=== PATIENT | female | born 1950 | race Caucasian/White ===

== ENCOUNTER → 2018-01-16 | Outpatient (CLI) | payer MEDICARE ==
[~2018-01-16] MED LIST: CLARITIN 1010 MG/TAB PO; DILTIAZEM30 MG PO; GLYBURIDE5 MG PO; LISINOPRIL10 MG PO; WARFARIN SOD5 MG PO; WARFARIN SODIU7.5 MG PO; ZOCOR10 MG PO
== END ==
LOC: MC.RAD 14:20
DX: Z12.31 Encounter for screening mammogram for malignant neoplasm of breast (principal)

== ENCOUNTER → 2018-03-09 | Outpatient (REF) ==
[~2018-03-09] MED LIST changes: +ASPIRIN 81M81 MG/TA2 PO; +INVOKAMET1 PO; +INVOKAMET4; +LIPITOR 10MG10 MG PO; +MAXIPIME2 GM IV; +NORCO 325 MG-51 TAB PO; +NS INT FLUSH 1010 ML IV; +THE MEDICINE SH1 T18 PO; +TOPROL XL 25MG25 MG; +TOPROL XL 25MG25 MG PO; +VANCOMYCIN 11 G/VIA1 IV; +XARELTO10 MG PO
[2018-03-09 09:02] LABS: VANCOMYCIN TROUGH 14.47 ug/mL (7.00-20.00)
== END ==
LOC: ZLAB.WCH 08:36
PROVIDERS: Family Medicine
DX: Z01.89 Encounter for other specified special examinations (principal)

== ENCOUNTER → 2018-03-16 | Outpatient (REF) ==
[~2018-03-16] MED LIST changes: +COREG 3.123.125 MG/T PO; +JANUMXR1000-50 PO; -LIPITOR 10MG10 MG PO; +LIPITOR 80MG80 MG PO; +VICTOZA6 MG/ML SQ; -XARELTO10 MG PO; +XARELTO20 MG PO; +ZESTRIL 5MG5 MG PO
[2018-03-16 08:47] LABS: C-REACTIVE PROTEIN 0.9 mg/dL (0.0-0.9)
[2018-03-16 09:02] LABS: VANCOMYCIN TROUGH 36.27 ug/mL (7.00-20.00)
== END ==
LOC: ZLAB.WCH 08:28
PROVIDERS: Internal Medicine Infectious Disease
DX: Z01.89 Encounter for other specified special examinations (principal)

== ENCOUNTER → 2018-03-17 | Outpatient (REF) | LOC: ZLAB.WCH 08:43 | DX: Z01.89 Encounter for other specified special examinations (principal) ==

== ENCOUNTER → 2018-03-17 | Outpatient (REF) | LOC: ZLAB.WCH 15:54 | DX: Z01.89 Encounter for other specified special examinations (principal) ==

== ENCOUNTER → 2018-03-29 | Outpatient (REF) ==
[~2018-03-29] MED LIST changes: +CUBICIN 500MG500 MG IV; +ELIQUIS 2.5 PO; +FLAGYL500 MG PO
== END ==
LOC: ZLAB.WCH 08:45
DX: Z01.89 Encounter for other specified special examinations (principal)

== ENCOUNTER 2018-04-09 00:44 | Inpatient (IN) | payer MEDICARE, BC ==
[~2018-04-09] VITALS: Ht 162.6 cm; Wt 80.8 kg
[2018-04-09] VITALS (946 sets, daily range): BP systolic 103–147; BP diastolic 60–88; PULSE 73–89; TEMP 97.3–98.3; O2SAT 66–100
[2018-04-09 01:05] LABS: BASO % 0.5 % (0.0-2.0); EOS # 0.1 (0.0-0.7); EOS % 1.5 % (0-4.0); GRAN % 80.5 % (42.2-75.2); HEMATOCRIT 30.7 % (37.0-47.0); HEMOGLOBIN 10.5 g/dl (12.5-16.0); LYMPH # 0.8 (1.2-3.4); LYMPH % 10.9 % (20.0-51.0); MEAN CELL VOLUME 81 fl (80.0-100.0); MEAN CORPUSCULAR HEMOGLOBIN 28 pg (27.0-31.0); MEAN CORPUSCULAR HGB CONC 34 g/dl (33.0-37.0); MEAN PLATELET VOLUME 9.9 fl (7.4-10.4); MONO # 0.5 (0.1-0.6); MONO % 6.3 % (1.7-9.3); PLATELET COUNT 267 K/mm3 (130-400); RED BLOOD COUNT 3.79 M/mm3 (4.10-5.30); REDCELL DISTRIBUTION WIDTH-CV 14.6 % (11.5-14.5)
[2018-04-09 01:13] LABS: ALANINE AMINOTRANSFERASE 29 U/L (9-52); ALBUMIN 4.4 gm/dL (3.5-5.0); ALKALINE PHOSPHATASE 100 U/L (50-136); ANION GAP 18 mmol/L (7-16); AST,SGOT 34 U/L (15-37); BILIRUBIN,TOTAL 1.1 mg/dL (0.0-1.0); BLOOD UREA NITROGEN 14 mg/dL (7-17); CALCIUM 8.5 mg/dL (8.4-10.2); CARBON DIOXIDE 28 mmol/L (22-30); CHLORIDE 95 mmol/L (98-107); CREATININE, serum 0.83 mg/dL (0.52-1.25); GLUCOSE 177 mg/dL (74-106); SODIUM 141 mmol/L (137-145); TOTAL PROTEIN 8.1 gm/dL (6.4-8.2)
[2018-04-09 01:15] LABS: INR 1.3 (0.8-3.0); PROTHROMBIN TIME 15.1 SECONDS (9.7-12.8)
[2018-04-09 01:24] LABS: TROPONIN-I < 0.012 ng/mL (0.000-0.034)
[2018-04-09] MEDS ORDERED: ANXIETY MEDICATION (02:03)
[2018-04-09 06:06] LABS: BASO % 0.3 % (0.0-2.0); EOS # 0.1 (0.0-0.7); EOS % 0.6 % (0-4.0); GRAN # 6.3 (1.4-6.5); GRAN % 80.7 % (42.2-75.2); HEMOGLOBIN 10.6 g/dl (12.5-16.0); LYMPH # 0.9 (1.2-3.4); LYMPH % 12.1 % (20.0-51.0); MEAN CELL VOLUME 80 fl (80.0-100.0); MEAN CORPUSCULAR HEMOGLOBIN 27 pg (27.0-31.0); MEAN CORPUSCULAR HGB CONC 34 g/dl (33.0-37.0); MEAN PLATELET VOLUME 9.9 fl (7.4-10.4); MONO # 0.5 (0.1-0.6); MONO % 5.9 % (1.7-9.3); PLATELET COUNT 266 K/mm3 (130-400); RED BLOOD COUNT 3.88 M/mm3 (4.10-5.30); REDCELL DISTRIBUTION WIDTH-CV 14.7 % (11.5-14.5)
[2018-04-09 06:18] LABS: HEMATOCRIT 31.2 % (37.0-47.0)
[2018-04-09 06:19] LABS: MUCOUS Present /lpf; PH 8 (5-8); SQUAMOUS EPITHELIAL None Seen /hpf; URINE APPEARANCE Clear; URINE BACTERIA None Seen /hpf; URINE BILIRUBIN Negative (NEGATIVE); URINE BLOOD Negative (NEGATIVE); URINE COLOR Straw; URINE GLUCOSE Negative (NEGATIVE); URINE KETONE Negative (NEGATIVE); URINE LEUKOCYTE ESTERASE Negative (NEGATIVE); URINE NITRATE Negative (NEGATIVE); URINE PROTEIN(semi-quant) 1+ (NEGATIVE); URINE RBC 0-2 /hpf; URINE UROBILINOGEN Negative (NEGATIVE)
[2018-04-09 06:24] LABS: ALBUMIN 4.3 gm/dL (3.5-5.0); CALCIUM 8.5 mg/dL (8.4-10.2); CREATININE, serum 0.84 mg/dL (0.52-1.25); TOTAL PROTEIN 8.2 gm/dL (6.4-8.2)
[2018-04-09 06:47] LABS: COLLECTION METHOD RANDOM VOIDED
[2018-04-10] VITALS (1279 sets, daily range): BP systolic 92–122; BP diastolic 53–68; PULSE 71–91; TEMP 97.3–98.4; O2SAT 90–100
[2018-04-10 05:52] LABS: BASO # 0.1 (0.0-0.2); BASO % 0.8 % (0.0-2.0); EOS # 0.3 (0.0-0.7); EOS % 4.2 % (0-4.0); GRAN # 4.3 (1.4-6.5); GRAN % 68.8 % (42.2-75.2); LYMPH # 1.1 (1.2-3.4); LYMPH % 18.3 % (20.0-51.0); MEAN CELL VOLUME 82 fl (80.0-100.0); MEAN CORPUSCULAR HGB CONC 34 g/dl (33.0-37.0); MEAN PLATELET VOLUME 9.7 fl (7.4-10.4); MONO # 0.5 (0.1-0.6); MONO % 7.6 % (1.7-9.3); PLATELET COUNT 225 K/mm3 (130-400); RED BLOOD COUNT 3.44 M/mm3 (4.10-5.30); REDCELL DISTRIBUTION WIDTH-CV 15.2 % (11.5-14.5)
[2018-04-10 05:56] LABS: HEMATOCRIT 28.2 % (37.0-47.0); HEMOGLOBIN 9.5 g/dl (12.5-16.0); MEAN CORPUSCULAR HEMOGLOBIN 28 pg (27.0-31.0)
[2018-04-10 06:02] LABS: CALCIUM 8.4 mg/dL (8.4-10.2); CREATININE, serum 0.98 mg/dL (0.52-1.25); MAGNESIUM 2.4 mg/dL (1.6-2.3)
[2018-04-11] VITALS (234 sets, daily range): BP systolic 96–163; BP diastolic 27–77; PULSE 69–97; TEMP 97.7–98.1; O2SAT 91–100
[2018-04-11 05:40] LABS: BASO % 0.9 % (0.0-2.0); EOS # 0.2 (0.0-0.7); EOS % 3.7 % (0-4.0); GRAN # 2.8 (1.4-6.5); GRAN % 60.8 % (42.2-75.2); LYMPH # 1.2 (1.2-3.4); LYMPH % 26.2 % (20.0-51.0); MEAN CELL VOLUME 83 fl (80.0-100.0); MEAN CORPUSCULAR HGB CONC 34 g/dl (33.0-37.0); MEAN PLATELET VOLUME 9.9 fl (7.4-10.4); MONO # 0.4 (0.1-0.6); MONO % 8.2 % (1.7-9.3); PLATELET COUNT 213 K/mm3 (130-400); RED BLOOD COUNT 3.42 M/mm3 (4.10-5.30); REDCELL DISTRIBUTION WIDTH-CV 15.2 % (11.5-14.5)
[2018-04-11 05:42] LABS: HEMATOCRIT 28.2 % (37.0-47.0); HEMOGLOBIN 9.5 g/dl (12.5-16.0); MEAN CORPUSCULAR HEMOGLOBIN 28 pg (27.0-31.0)
[2018-04-11 05:48] LABS: CALCIUM 8.6 mg/dL (8.4-10.2); CREATININE, serum 1.03 mg/dL (0.52-1.25); POTASSIUM 3.8 mmol/L (3.4-5.0)
[2018-04-12 04:11] VITALS: BP 121/48; PULSE 71; TEMP 97.8
[2018-04-12 06:51] LABS: CALCIUM 8.6 mg/dL (8.4-10.2); CREATININE, serum 1.05 mg/dL (0.52-1.25); MAGNESIUM 1.6 mg/dL (1.6-2.3); POTASSIUM 3.5 mmol/L (3.4-5.0)
[2018-04-12 06:54] VITALS: BP 119/49; PULSE 70; TEMP 98.3
[2018-04-12 11:08] VITALS: BP 123/52; PULSE 70; TEMP 97.9
[2018-04-12] MEDS ORDERED: PACERONE400 MG PO (14:19)
[2018-04-12] MEDS ORDERED: ELIQUIS 5MG PO (14:19)
[2018-04-12] MEDS ORDERED: CUBICIN 500MG500 MG IV ×2 (14:19→14:33)
== END 2018-04-12 17:10 | disposition home or self-care (01) | DRG 309 ==
LOC: COL.ER 00:44 → ICU 02:26 → MEDICAL 04-11 14:49
PROVIDERS: Emergency Medicine; Internal Medicine; Nurse Practitioner Family
PROC: 5A2204Z Restoration of Cardiac Rhythm, Single (ICD-10-PCS; principal; 2018-04-11)
DX: I48.91 Unspecified atrial fibrillation (principal); N17.9 Acute kidney failure, unspecified; E87.6 Hypokalemia; I34.0 Nonrheumatic mitral (valve) insufficiency; D64.9 Anemia, unspecified; I25.10 Atherosclerotic heart disease of native coronary artery without angina pectoris; I10 Essential (primary) hypertension; E78.5 Hyperlipidemia, unspecified; E11.9 Type 2 diabetes mellitus without complications; Z79.01 Long term (current) use of anticoagulants; Z95.5 Presence of coronary angioplasty implant and graft; Z95.0 Presence of cardiac pacemaker
CPT/HCPCS: 99223-AI; 99232-AI; 99233-AI; 99239; A9502; G9654; J0282; J0878; J1170; J1650; J1815; J1940; J2250; J2405; J2704; J3010; J3475; J3480; J7060; Q9967

== ENCOUNTER 2018-04-14 08:10 | Observation (INO) | payer MEDICARE, BC ==
[~2018-04-14] VITALS: Ht 162.6 cm; Wt 79.5 kg
[~2018-04-14 08:10] MED LIST changes: +ANXIETY MEDICATION; +ELIQUIS 5MG PO; +PACERONE400 MG PO
[2018-04-14 08:48] LABS: BASO % 0.4 % (0.0-2.0); EOS # 0.1 (0.0-0.7); EOS % 0.9 % (0-4.0); GRAN % 81.7 % (42.2-75.2); HEMOGLOBIN 10.9 g/dl (12.5-16.0); LYMPH # 0.8 (1.2-3.4); LYMPH % 11.2 % (20.0-51.0); MEAN CELL VOLUME 82 fl (80.0-100.0); MEAN CORPUSCULAR HEMOGLOBIN 28 pg (27.0-31.0); MEAN CORPUSCULAR HGB CONC 34 g/dl (33.0-37.0); MEAN PLATELET VOLUME 9.9 fl (7.4-10.4); MONO # 0.4 (0.1-0.6); MONO % 5.4 % (1.7-9.3); PLATELET COUNT 276 K/mm3 (130-400); RED BLOOD COUNT 3.93 M/mm3 (4.10-5.30); REDCELL DISTRIBUTION WIDTH-CV 14.9 % (11.5-14.5)
[2018-04-14 08:49] LABS: HEMATOCRIT 32.2 % (37.0-47.0)
[2018-04-14 09:03] LABS: ALANINE AMINOTRANSFERASE 37 U/L (9-52); ALBUMIN 4.6 gm/dL (3.5-5.0); ALKALINE PHOSPHATASE 81 U/L (50-136); ANION GAP 14 mmol/L (7-16); AST,SGOT 46 U/L (15-37); BLOOD UREA NITROGEN 14 mg/dL (7-17); C-REACTIVE PROTEIN 0.5 mg/dL (0.0-0.9); CALCIUM 9.8 mg/dL (8.4-10.2); CARBON DIOXIDE 27 mmol/L (22-30); CHLORIDE 96 mmol/L (98-107); CREATININE, serum 0.96 mg/dL (0.52-1.25); GLUCOSE 138 mg/dL (74-106); LIPASE 182 U/L (23-300); SODIUM 137 mmol/L (137-145); TOTAL PROTEIN 8.6 gm/dL (6.4-8.2)
[2018-04-14 09:13] LABS: TROPONIN-I < 0.012 ng/mL (0.000-0.034)
[2018-04-14 10:56] LABS: COLLECTION METHOD CLEAN CATCH
[2018-04-14 11:07] VITALS: BP 127/84; PULSE 80
[2018-04-14 11:36] LABS: PH 7 (5-8); SQUAMOUS EPITHELIAL 0-2 /hpf; URINE APPEARANCE Clear; URINE BACTERIA None Seen /hpf; URINE BILIRUBIN Negative (NEGATIVE); URINE BLOOD Negative (NEGATIVE); URINE COLOR Yellow; URINE GLUCOSE Negative (NEGATIVE); URINE KETONE Negative (NEGATIVE); URINE LEUKOCYTE ESTERASE Negative (NEGATIVE); URINE NITRATE Negative (NEGATIVE); URINE PROTEIN(semi-quant) 1+ (NEGATIVE); URINE RBC 0-2 /hpf; URINE UROBILINOGEN Negative (NEGATIVE)
[2018-04-14 15:52] VITALS: BP 132/61; PULSE 82; TEMP 98
[2018-04-14 15:54] VITALS: BP 132/61; PULSE 82; TEMP 98
[2018-04-14 19:34] VITALS: BP 117/57; PULSE 78; TEMP 98.1
[2018-04-15 00:19] VITALS: BP 150/63; PULSE 72; TEMP 97.9
[2018-04-15 03:47] VITALS: BP 116/47; PULSE 73; TEMP 97.4
[2018-04-15 07:08] LABS: BASO % 0.6 % (0.0-2.0); EOS # 0.2 (0.0-0.7); EOS % 3.4 % (0-4.0); LYMPH % 22.2 % (20.0-51.0); MEAN CELL VOLUME 85 fl (80.0-100.0); MEAN CORPUSCULAR HGB CONC 34 g/dl (33.0-37.0); MEAN PLATELET VOLUME 10.3 fl (7.4-10.4); MONO # 0.4 (0.1-0.6); MONO % 9.4 % (1.7-9.3); PLATELET COUNT 196 K/mm3 (130-400); RED BLOOD COUNT 3.16 M/mm3 (4.10-5.30); REDCELL DISTRIBUTION WIDTH-CV 15.2 % (11.5-14.5)
[2018-04-15 07:18] VITALS: BP 129/74; PULSE 63; TEMP 98.2
[2018-04-15 07:19] LABS: CALCIUM 8.5 mg/dL (8.4-10.2); CREATININE, serum 0.89 mg/dL (0.52-1.25); MAGNESIUM 1.3 mg/dL (1.6-2.3); POTASSIUM 3.8 mmol/L (3.4-5.0)
[2018-04-15 07:24] LABS: HEMATOCRIT 26.9 % (37.0-47.0); MEAN CORPUSCULAR HEMOGLOBIN 28 pg (27.0-31.0)
[2018-04-15] MEDS ORDERED: COLACE 100100 MG/CAP PO (09:28)
[2018-04-15] MEDS ORDERED: ZOFRAN 4MG T4 MG/TAB PO (09:28)
[2018-04-15] MEDS ORDERED: MIRALAX238G PO (09:28)
== END 2018-04-15 12:13 | disposition home or self-care (01) ==
LOC: COL.ER 08:10 → SURG 12:52 → MEDICAL 12:58
PROVIDERS: Emergency Medicine; Nurse Practitioner Family
DX: R11.2 Nausea with vomiting, unspecified (principal); I95.1 Orthostatic hypotension; K59.00 Constipation, unspecified; I48.0 Paroxysmal atrial fibrillation; E78.5 Hyperlipidemia, unspecified; E11.9 Type 2 diabetes mellitus without complications; N17.9 Acute kidney failure, unspecified; I10 Essential (primary) hypertension; Z79.01 Long term (current) use of anticoagulants
CPT/HCPCS: G0378; J0878; J1170; J2405; J7030; Q9967

== ENCOUNTER → 2018-04-22 | Outpatient (REF) ==
[~2018-04-22] MED LIST changes: +COLACE 100100 MG/CAP PO; +MIRALAX238G PO; +ZOFRAN 4MG T4 MG/TAB PO
== END ==
LOC: ZLAB.WCH 11:30
DX: Z01.89 Encounter for other specified special examinations (principal)

== ENCOUNTER 2018-05-23 11:51 | Inpatient (IN) | payer MEDICARE, BC ==
[~2018-05-23] VITALS: Ht 162.6 cm; Wt 83.8 kg
[2018-06-01 08:49] VITALS: BP 142/59; PULSE 77; TEMP 98.4
[2018-06-01 09:36] LABS: HEMOGLOBIN 10.1 g/dl (12.5-16.0); MEAN CELL VOLUME 85 fl (80.0-100.0); MEAN CORPUSCULAR HEMOGLOBIN 28 pg (27.0-31.0); MEAN CORPUSCULAR HGB CONC 33 g/dl (33.0-37.0); PLATELET COUNT 188 K/mm3 (130-400); RED BLOOD COUNT 3.56 M/mm3 (4.10-5.30); REDCELL DISTRIBUTION WIDTH-CV 14.7 % (11.5-14.5)
[2018-06-01 09:39] LABS: HEMATOCRIT 30.2 % (37.0-47.0)
[2018-06-01 09:44] LABS: INR 1.4 (0.8-3.0); PROTHROMBIN TIME 16.3 SECONDS (9.7-12.8)
[2018-06-01 09:58] LABS: ALBUMIN 3.9 gm/dL (3.5-5.0); BILIRUBIN,TOTAL 0.8 mg/dL (0.0-1.0); CREATININE, serum 0.7 mg/dL (0.52-1.25); MAGNESIUM 1.4 mg/dL (1.6-2.3); TOTAL PROTEIN 7.4 gm/dL (6.4-8.2)
[2018-06-01] MEDS ORDERED: COREG 25MG25 MG/TAB PO (10:46)
[2018-06-01] MEDS ORDERED: COLACE 100100 MG/CAP PO (10:47)
[2018-06-01] MEDS ORDERED: PROBIOTIC ACID1 EAC3 PO (10:49)
[2018-06-01] MEDS ORDERED: LASIX 20MG TABL20 MG PO (10:51)
[2018-06-01 11:23] VITALS: BP 143/66; PULSE 82; TEMP 97.2
[2018-06-01 16:24] VITALS: BP 138/58; PULSE 72
[2018-06-01 16:26] VITALS: BP 124/50
[2018-06-01 16:27] VITALS: BP 126/50
[2018-06-01 20:54] VITALS: BP 128/88; PULSE 71; TEMP 98.5
[2018-06-02 00:27] VITALS: BP 132/62; PULSE 58; TEMP 98
[2018-06-02 03:05] VITALS: BP 128/57; PULSE 70; TEMP 98.8
[2018-06-02 07:09] LABS: BASO % 0.5 % (0.0-2.0); EOS # 0.1 (0.0-0.7); GRAN # 4.8 (1.4-6.5); GRAN % 75.1 % (42.2-75.2); HEMOGLOBIN 10.2 g/dl (12.5-16.0); MEAN CELL VOLUME 87 fl (80.0-100.0); MEAN CORPUSCULAR HEMOGLOBIN 28 pg (27.0-31.0); MEAN CORPUSCULAR HGB CONC 32 g/dl (33.0-37.0); MEAN PLATELET VOLUME 10.2 fl (7.4-10.4); MONO # 0.4 (0.1-0.6); MONO % 5.9 % (1.7-9.3); PLATELET COUNT 222 K/mm3 (130-400)
[2018-06-02 07:15] LABS: HEMATOCRIT 32.2 % (37.0-47.0)
[2018-06-02 07:22] LABS: CREATININE, serum 0.68 mg/dL (0.52-1.25); MAGNESIUM 1.8 mg/dL (1.6-2.3); POTASSIUM 3.8 mmol/L (3.4-5.0)
[2018-06-02 08:07] VITALS: BP 144/64; PULSE 69; TEMP 98.1
[2018-06-02 11:04] VITALS: BP 143/63; PULSE 73; TEMP 97.5
[2018-06-02 17:05] VITALS: BP 121/53; PULSE 74; TEMP 97.6
[2018-06-02 21:25] VITALS: BP 114/72; BP 139/60; PULSE 65; TEMP 97.7; TEMP 98.1
[2018-06-03 00:04] VITALS: BP 133/58; PULSE 71; TEMP 98.1
[2018-06-03 04:30] VITALS: BP 132/56; PULSE 70; TEMP 97.8
[2018-06-03 07:51] VITALS: BP 149/69; PULSE 72; TEMP 98.2
[2018-06-03] MEDS ORDERED: BETAPACE 80MG80 MG PO (10:25)
== END 2018-06-03 11:30 | disposition home or self-care (01) | DRG 310 ==
LOC: MEDICAL 06-01 08:35
PROVIDERS: Internal Medicine Cardiovascular Disease; Nurse Practitioner Family
DX: I48.0 Paroxysmal atrial fibrillation (principal); I25.10 Atherosclerotic heart disease of native coronary artery without angina pectoris; I10 Essential (primary) hypertension; E11.42 Type 2 diabetes mellitus with diabetic polyneuropathy; Z95.5 Presence of coronary angioplasty implant and graft; Z95.0 Presence of cardiac pacemaker; Z79.01 Long term (current) use of anticoagulants; E78.5 Hyperlipidemia, unspecified; E83.42 Hypomagnesemia; E11.65 Type 2 diabetes mellitus with hyperglycemia; I05.2 Rheumatic mitral stenosis with insufficiency
CPT/HCPCS: 99222; 99232-AI; 99238; G8978-GP; G8979-GP; J1815; J3475

== ENCOUNTER 2018-07-10 10:22 | Day surgery (SDC) | payer MEDICARE, BC ==
[~2018-07-10] VITALS: Ht 162.7 cm; Wt 79.0 kg
[~2018-07-10 10:22] MED LIST changes: +BETAPACE 80MG80 MG PO; +COREG 25MG25 MG/TAB PO; +LASIX 20MG TABL20 MG PO; +PROBIOTIC ACID1 EAC3 PO
[2018-07-10] MEDS ORDERED: AMBIEN 5MG TABLE5 MG PO (10:31)
[2018-07-10 11:02] VITALS: BP 144/87; PULSE 88; TEMP 97.8
[2018-07-10 11:35] LABS: INR 1.5 (0.8-3.0)
[2018-07-10] MEDS ORDERED: BETAPACE160 MG PO (12:12)
[2018-07-10 12:25] VITALS: BP 148/72; PULSE 74
[2018-07-10 12:40] VITALS: BP 140/74; PULSE 71; TEMP 97.4
[2018-07-10 12:56] VITALS: BP 132/76; PULSE 70; TEMP 98
[2018-07-10 13:17] VITALS: BP 149/80; PULSE 70; TEMP 97.9
== END 2018-07-10 15:44 | disposition home or self-care (01) ==
LOC: COL.CAR 10:22
PROVIDERS: Internal Medicine Cardiovascular Disease
DX: I48.0 Paroxysmal atrial fibrillation (principal); E11.9 Type 2 diabetes mellitus without complications; I25.10 Atherosclerotic heart disease of native coronary artery without angina pectoris; I49.5 Sick sinus syndrome; I10 Essential (primary) hypertension; Z78.0 Asymptomatic menopausal state; Z79.899 Other long term (current) drug therapy; Z82.49 Family history of ischemic heart disease and other diseases of the circulatory system; Z95.0 Presence of cardiac pacemaker; E78.5 Hyperlipidemia, unspecified; Z79.01 Long term (current) use of anticoagulants
CPT/HCPCS: J2250; J3010; J7030

== ENCOUNTER → 2018-08-08 | Outpatient (CLI) | payer MEDICARE, BC ==
[~2018-08-08] MED LIST changes: +AMBIEN 5MG TABLE5 MG PO; +BETAPACE160 MG PO
== END ==
LOC: COL.RAD 07:39
DX: K91.0 Vomiting following gastrointestinal surgery (principal); R19.7 Diarrhea, unspecified; R10.9 Unspecified abdominal pain
CPT/HCPCS: A9541

== ENCOUNTER 2019-03-07 15:06 | Emergency (ER) | payer MEDICARE, BC ==
[~2019-03-07] VITALS: Ht 5.1 cm; Wt 90.9 kg
[2019-03-07 15:32] VITALS: BP 127/80; TEMP 97.4
[2019-03-07 16:26] LABS: ALANINE AMINOTRANSFERASE 16 U/L (9-52); ALBUMIN 4.1 gm/dL (3.5-5.0); ALKALINE PHOSPHATASE 109 U/L (50-136); ANION GAP 12 mmol/L (7-16); AST,SGOT 41 U/L (15-37); BLOOD UREA NITROGEN 22 mg/dL (7-17); C-REACTIVE PROTEIN < 0.5 mg/dL (0.0-0.9); CALCIUM 9.2 mg/dL (8.4-10.2); CARBON DIOXIDE 25 mmol/L (22-30); CHLORIDE 99 mmol/L (98-107); CREATININE, serum 0.82 (0.52-1.25); GLUCOSE 262 mg/dL (74-106); LIPASE 126 U/L (23-300); POTASSIUM 4.5 mmol/L (3.4-5.0); SODIUM 136 mmol/L (137-145); TOTAL PROTEIN 7.7 gm/dL (6.4-8.2)
[2019-03-07 16:34] LABS: BASO % 0.6 % (0.0-2.0); EOS # 0.1 (0.0-0.7); EOS % 0.8 % (0-4.0); GRAN # 5.3 (1.4-6.5); GRAN % 72.9 % (42.2-75.2); HEMATOCRIT 39.7 % (37.0-47.0); HEMOGLOBIN 13.6 g/dl (12.5-16.0); LYMPH # 1.3 (1.2-3.4); LYMPH % 18.2 % (20.0-51.0); MEAN CELL VOLUME 84 fl (80.0-100.0); MEAN CORPUSCULAR HEMOGLOBIN 29 pg (27.0-31.0); MEAN CORPUSCULAR HGB CONC 34 g/dl (33.0-37.0); MEAN PLATELET VOLUME 10.3 fl (7.4-10.4); MONO # 0.5 (0.1-0.6); MONO % 7.1 % (1.7-9.3); PLATELET COUNT 223 K/mm3 (130-400); RED BLOOD COUNT 4.75 M/mm3 (4.10-5.30); REDCELL DISTRIBUTION WIDTH-CV 14.5 % (11.5-14.5)
[2019-03-07 16:36] LABS: TROPONIN-I < 0.012 ng/mL (0.000-0.035)
[2019-03-07] MEDS ORDERED: LASIX 20MG TABL20 MG PO (16:58)
[2019-03-07] MEDS ORDERED: LEXAPRO 5MG5 MG PO (16:58)
[2019-03-07] MEDS ORDERED: LEVEMIR100 U/ML SQ (16:59)
[2019-03-07] MEDS ORDERED: LOPRESSOR 550 MG/TAB PO (17:00)
[2019-03-07] MEDS ORDERED: FLEXERIL5 MG PO (17:57)
[2019-03-07] MEDS ORDERED: ANTIVERT 25MG25 MG PO (17:57)
[2019-03-07 18:38] VITALS: PULSE 71
== END 2019-03-07 18:38 | disposition home or self-care (01) ==
LOC: COL.ER 15:06
PROVIDERS: Emergency Medicine
DX: M54.2 Cervicalgia (principal); R42 Dizziness and giddiness; I10 Essential (primary) hypertension; E78.00 Pure hypercholesterolemia, unspecified; I25.10 Atherosclerotic heart disease of native coronary artery without angina pectoris; I48.91 Unspecified atrial fibrillation; Z95.0 Presence of cardiac pacemaker; Z79.01 Long term (current) use of anticoagulants; Z79.82 Long term (current) use of aspirin; Z79.4 Long term (current) use of insulin
CPT/HCPCS: J2060; J7030; Q9967

== ENCOUNTER 2019-05-08 23:30 | Emergency (ER) | payer MEDICARE, BC ==
[~2019-05-08] VITALS: Ht 160 cm; Wt 90.9 kg
[~2019-05-08 23:30] MED LIST changes: +ANTIVERT 25MG25 MG PO; +FLEXERIL5 MG PO; +LEVEMIR100 U/ML SQ; +LEXAPRO 5MG5 MG PO; +LOPRESSOR 550 MG/TAB PO
[2019-05-09 00:21] LABS: HEMATOCRIT 37.1 % (37.0-47.0); HEMOGLOBIN 12.5 g/dl (12.5-16.0); MEAN CELL VOLUME 85 fl (80.0-100.0); MEAN CORPUSCULAR HEMOGLOBIN 29 pg (27.0-31.0); MEAN CORPUSCULAR HGB CONC 34 g/dl (33.0-37.0); MEAN PLATELET VOLUME 10.3 fl (7.4-10.4); PLATELET COUNT 175 K/mm3 (130-400); RED BLOOD COUNT 4.36 M/mm3 (4.10-5.30); REDCELL DISTRIBUTION WIDTH-CV 14.1 % (11.5-14.5)
[2019-05-09 00:29] LABS: ALANINE AMINOTRANSFERASE 18 U/L (9-52); ALBUMIN 4.1 gm/dL (3.5-5.0); ALKALINE PHOSPHATASE 135 U/L (50-136); ANION GAP 16 mmol/L (7-16); AST,SGOT 36 U/L (15-37); BILIRUBIN,TOTAL 1.2 mg/dL (0.0-1.0); BLOOD UREA NITROGEN 15 mg/dL (7-17); CALCIUM 8.9 mg/dL (8.4-10.2); CARBON DIOXIDE 27 mmol/L (22-30); CHLORIDE 96 mmol/L (98-107); CREATININE, serum 0.57 (0.52-1.25); GLUCOSE 370 mg/dL (74-106); POTASSIUM 4.2 mmol/L (3.4-5.0); SODIUM 139 mmol/L (137-145); TOTAL PROTEIN 7.4 gm/dL (6.4-8.2)
[2019-05-09 00:31] LABS: INR 1.1 (0.8-3.0); PROTHROMBIN TIME 12.7 SECONDS (9.7-12.8)
[2019-05-09 00:41] LABS: TROPONIN-I < 0.012 ng/mL (0.000-0.035)
[2019-05-09 00:55] LABS: BAND 6 % (0-10); LYMPHOCYTE 5 % (20.0-51.0); METAMYELOCYTE 1 % (0-0); NEUTROPHILS 86 % (42.0-75.2); PLATELET ESTIMATE NORMAL (NORMAL)
[2019-05-09 06:25] VITALS: BP 127/46; PULSE 69; TEMP 98.2
== END 2019-05-09 06:20 | disposition home or self-care (01) ==
LOC: COL.ER 23:30
PROVIDERS: Emergency Medicine
DX: R11.10 Vomiting, unspecified (principal); I25.10 Atherosclerotic heart disease of native coronary artery without angina pectoris; I48.91 Unspecified atrial fibrillation; E11.9 Type 2 diabetes mellitus without complications; I10 Essential (primary) hypertension; E78.5 Hyperlipidemia, unspecified; Z95.5 Presence of coronary angioplasty implant and graft; Z95.0 Presence of cardiac pacemaker; Z96.652 Presence of left artificial knee joint; Z98.890 Other specified postprocedural states; Z79.01 Long term (current) use of anticoagulants; Z79.82 Long term (current) use of aspirin; Z79.4 Long term (current) use of insulin
CPT/HCPCS: J1815; J3010; J7030

== ENCOUNTER 2020-02-17 21:48 | Inpatient (IN) | payer MEDICARE, BC ==
[~2020-02-17] VITALS: Ht 157.5 cm; Wt 93.6 kg
[2020-02-17 22:51] LABS: BASO % 0.2 % (0.0-2.0); EOS # 0.2 (0.0-0.7); EOS % 1.9 % (0-4.0); GRAN # 6.9 (1.4-6.5); GRAN % 76.8 % (42.2-75.2); HEMOGLOBIN 11.7 g/dl (12.5-16.0); LYMPH # 1.2 (1.2-3.4); LYMPH % 13.9 % (20.0-51.0); MEAN CELL VOLUME 81 fl (80.0-100.0); MEAN CORPUSCULAR HEMOGLOBIN 27 pg (27.0-31.0); MEAN CORPUSCULAR HGB CONC 33 g/dl (33.0-37.0); MEAN PLATELET VOLUME 10.2 fl (7.4-10.4); MONO # 0.6 (0.1-0.6); MONO % 6.6 % (1.7-9.3); PLATELET COUNT 173 K/mm3 (130-400); RED BLOOD COUNT 4.31 M/mm3 (4.10-5.30); REDCELL DISTRIBUTION WIDTH-CV 14.1 % (11.5-14.5)
[2020-02-17 23:05] LABS: ALANINE AMINOTRANSFERASE 15 U/L (4-34); ALBUMIN 3.9 gm/dL (3.5-5.0); ALKALINE PHOSPHATASE 201 U/L (50-136); ANION GAP 11 mmol/L (7-16); AST,SGOT 26 U/L (15-37); BILIRUBIN,TOTAL 0.8 mg/dL (0.0-1.0); BLOOD UREA NITROGEN 16 mg/dL (7-17); CARBON DIOXIDE 26 mmol/L (22-30); CHLORIDE 93 mmol/L (98-107); CREATININE, serum 0.77 (0.52-1.25); LIPASE 100 U/L (23-300); SODIUM 130 mmol/L (137-145); TOTAL PROTEIN 7.6 gm/dL (6.4-8.2)
[2020-02-17 23:06] LABS: HEMATOCRIT 35.1 % (37.0-47.0)
[2020-02-17 23:17] LABS: GLUCOSE 531 mg/dL (74-106)
[2020-02-17 23:43] LABS: ACETONE,SERUM NEGATIVE
[2020-02-18] MEDS ORDERED: LEXAPRO 10MG10 MG PO (01:07)
[2020-02-18] MEDS ORDERED: PRIL40 PO (01:08)
[2020-02-18] MEDS ORDERED: MIRALAX PA17 GM/Dose PO (01:08)
[2020-02-18 01:51] LABS: CALCIUM 8.5 mg/dL (8.4-10.2); CREATININE, serum 0.66 (0.52-1.25)
--- NOTE | 2020-02-18 02:45 | NUR ---
Patient arrived to medical floor at this time. Assessment complete. Lungs clear. Heart sounds normal. Bowels active x4. Pulses present throughout. Left lower extremity +2 edema present with weak pulse. Left foot wound swollen with erythema to foot and ankle present. Reports decreased feeling in both feet. Blood sugar 209-Brenda updated. Also pulse 50s hold metoprolol. Gave verbal order for melatonin. patient orientated to medical floor and room. All questions answered. INT left AC unable to flush- restarted in left upper arm. Also started second IV in left forearm. Denies needs at this time. Call light in reach. Will monitor.
[2020-02-18 02:47] VITALS: BP 125/51; PULSE 50; TEMP 97.7
--- NOTE | 2020-02-18 06:22 | NUR ---
Patient had uneventful night. Receiving potassium replacement as order. Otherwise resting in bed this AM. Denies needs. Call light in reach.
[2020-02-18 07:12] LABS: BASO % 0.3 % (0.0-2.0); EOS # 0.2 (0.0-0.7); EOS % 2.7 % (0-4.0); GRAN # 4.2 (1.4-6.5); GRAN % 67.1 % (42.2-75.2); HEMOGLOBIN 10.1 g/dl (12.5-16.0); LYMPH # 1.3 (1.2-3.4); MEAN CELL VOLUME 83 fl (80.0-100.0); MEAN CORPUSCULAR HEMOGLOBIN 28 pg (27.0-31.0); MEAN CORPUSCULAR HGB CONC 34 g/dl (33.0-37.0); MEAN PLATELET VOLUME 10.5 fl (7.4-10.4); MONO # 0.5 (0.1-0.6); MONO % 8.4 % (1.7-9.3); PLATELET COUNT 162 K/mm3 (130-400); RED BLOOD COUNT 3.63 M/mm3 (4.10-5.30); REDCELL DISTRIBUTION WIDTH-CV 14.3 % (11.5-14.5)
--- NOTE | 2020-02-18 07:21 | NUR ---
Report given to BRAD Alvarez
[2020-02-18 07:31] LABS: CALCIUM 8.3 mg/dL (8.4-10.2); CREATININE, serum 0.59 (0.52-1.25); POTASSIUM 3.6 mmol/L (3.4-5.0)
[2020-02-18 07:33] LABS: HEMATOCRIT 30.1 % (37.0-47.0)
[2020-02-18 07:38] VITALS: BP 130/42; BP 130/44; PULSE 70; TEMP 97.8
--- NOTE | 2020-02-18 08:23 | NUR ---
Assessment complete. Pt resting in bed on entry. States she was able to get comfortable. States she had minor abdominal pain/pressure and a headache, will request PRN pain mediaction. IV sites CD&I, IV fluids and potassium running at this time. No pain other than her headache. She is alert and oriented. She is aware of her POC. Will continue to monitor. Call light is in reach.
[2020-02-18 11:52] VITALS: BP 151/64; PULSE 69; TEMP 97.8
--- NOTE | 2020-02-18 12:37 | NUR ---
Pt reports a headache rated at an 8 out 10, PRN pain medication provided for this. States her abdomen and chest feel "tight" but denies shortness of breath. States this happens on and off at home. encouraged her to call if she feels short of breath or if chest pain occurs. Will continue to monitor.
--- NOTE | 2020-02-18 14:27 | NUR ---
Pts headache continued to persists after 650 of PO tylenol. Notified JONY Perales who further notified . One time dose of imetrex and benedryl was give. Will continue to monitor for an improvement in pts pain.
--- NOTE | 2020-02-18 16:03 | NUR ---
JAZ met with the patient to complete initial intake. The patient lives in [place] with her . The patient denies DME use and is independent with ADLs. The patient's PCP is Dr. Montano and patient receives medication from [facility] with no difficulties. The patient does not have advanced directives in the EMR and was not interested in DPOA-HC form at this time. The patient plans to return home at discharge with her providing transportation. There are no additional needs at this time.
[2020-02-18 16:24] VITALS: BP 134/73; PULSE 70; TEMP 97.9
--- NOTE | 2020-02-18 18:36 | NUR ---
Pt has been resting since recieving her medication for her headache. States that she feels like it is coming back but went back to sleep. Will let night RN know her headache was a significant issue today so it can be monitored closely over night.
[2020-02-18 19:38] VITALS: BP 154/57; PULSE 71; TEMP 98
--- NOTE | 2020-02-18 20:43 | NUR ---
Resting in bed. Assessment complete. Lungs clear. Heart sounds normal. Bowels active x4. Pulses present throughout. Left lower extremity edema +2. Left foot ulcer present with erythema. Close with no drainage. PICC to right upper arm without complications. Patient reports 2/10 headache. Provided with PRN tylenol at this time. Denies other needs. Call light in reach. Will monitor.
[2020-02-18 23:29] VITALS: BP 116/38; PULSE 51; TEMP 98.1
--- NOTE | 2020-02-19 00:07 | NUR ---
Resting in bed. Denies needs. Call light in reach.
--- NOTE | 2020-02-19 02:46 | NUR ---
Resting in bed. Denies needs. Call light in reach.
[2020-02-19 03:54] VITALS: BP 117/45; PULSE 57; TEMP 98.2
--- NOTE | 2020-02-19 05:48 | NUR ---
Patient had uneventful night. Required x1 dose of tylenol for headache. Denies needs this AM. Call light in reach.
--- NOTE | 2020-02-19 07:00 | NUR ---
Reports headache returned 1 hour ago rating 5/10. Provided with PRN tylenol.
--- NOTE | 2020-02-19 07:01 | NUR ---
Report given to BRAD Alvarez
[2020-02-19 07:46] VITALS: BP 158/64; PULSE 69; TEMP 98.3
--- NOTE | 2020-02-19 09:10 | NUR ---
Assessment complete. Patient resting in bed at this time, awake. States her headache from this morning has improved since recieving her PRN tylenol. Denies pain at this time. States that she still feels like she cannot take in a full breath. On ascultation her lung are clear but breaths are not deep. Denies feeling SOB, no chest pain. Foot remain edematous and tender to medium palpitation. Redness aroumd the ankle has improved since yesterday. Pt is aware of her POC, MRI at 1115. No other needs at [facility] time. Call light is in reach.
--- NOTE | 2020-02-19 11:07 | NUR ---
Pt down to MRI at this time.
--- NOTE | 2020-02-19 11:24 | NUR ---
First visit from the loftsman. No needs right now.
[2020-02-19 12:20] VITALS: BP 171/58; PULSE 70; TEMP 97.9
--- NOTE | 2020-02-19 12:54 | NUR ---
Pt has not had a headache since early this morning. States that she is comfortable in bed at this time, eating lunch. Insulin administered per orders. No other needs at this time. Call light is in reach.
--- NOTE | 2020-02-19 14:12 | NUR ---
Patient reported pain from headache rated at a 6 out of 10. PRN tylenol provided for this pain. No other needs were expressed at this. Will continue to monitor pain.
[2020-02-19 16:02] VITALS: BP 137/44; PULSE 70; TEMP 98.2
[2020-02-19 20:15] VITALS: BP 162/52; PULSE 71; TEMP 98.4
--- NOTE | 2020-02-19 21:00 | NUR ---
Initial shift assessment done- states having a severe H/A, 06/21- states feels warm, no fever, Brenda HAQUE called- pt states the combination of meds from yesterday did well for her BUCIO-- Brenda did order the benadryl and imitrex x1-- will give as ordered. Pt up to bathroom- steady on feet
[2020-02-20 01:01] VITALS: BP 139/56; PULSE 55; TEMP 98.7
[2020-02-20 05:09] VITALS: BP 134/49; PULSE 51; TEMP 99.1
--- NOTE | 2020-02-20 06:06 | NUR ---
Quiet night- the Imitrex and Benadryl given last night was very effective- denies headache and states slept so good--VSS
[2020-02-20 06:57] LABS: BASO % 0.3 % (0.0-2.0); EOS # 0.2 (0.0-0.7); EOS % 2.7 % (0-4.0); GRAN # 4.7 (1.4-6.5); LYMPH # 0.9 (1.2-3.4); LYMPH % 14.5 % (20.0-51.0); MEAN CELL VOLUME 83 fl (80.0-100.0); MEAN CORPUSCULAR HGB CONC 33 g/dl (33.0-37.0); MEAN PLATELET VOLUME 10.5 fl (7.4-10.4); MONO # 0.5 (0.1-0.6); MONO % 7.2 % (1.7-9.3); PLATELET COUNT 177 K/mm3 (130-400); RED BLOOD COUNT 3.62 M/mm3 (4.10-5.30); REDCELL DISTRIBUTION WIDTH-CV 14.6 % (11.5-14.5)
[2020-02-20 07:02] LABS: HEMOGLOBIN 9.9 g/dl (12.5-16.0); MEAN CORPUSCULAR HEMOGLOBIN 27 pg (27.0-31.0)
[2020-02-20 07:26] LABS: ALBUMIN 3.3 gm/dL (3.5-5.0); BILIRUBIN,TOTAL 1.1 mg/dL (0.0-1.0); C-REACTIVE PROTEIN 6.4 mg/dL (0.0-0.9); CALCIUM 8.6 mg/dL (8.4-10.2); CREATININE, serum 0.63 (0.52-1.25); POTASSIUM 4.1 mmol/L (3.4-5.0); TOTAL PROTEIN 6.7 gm/dL (6.4-8.2)
[2020-02-20 08:09] VITALS: BP 139/63; PULSE 70; TEMP 98.5
[2020-02-20] MEDS ORDERED: GLUCOTROL 5M5 MG/TAB PO (11:43)
[2020-02-20] MEDS ORDERED: DOXYCYCLINE 10100 MG PO (11:46)
--- NOTE | 2020-02-20 14:49 | NUR ---
Pt assessment completed and charted. Pt is alert and oriented, on room air. Meds provided as per MAR, breakfast and lunch provided, tolerated well. PICC flushed. Pt is independent. No N/V/D, pain, numbness, tingling, SOB as per pt. Discharge education given and PICC line taken out by the charge nurse. Patient is waiting for her family member to come and pick her up.
== END 2020-02-20 15:45 | disposition home or self-care (01) | DRG 638 ==
LOC: COL.ER 21:48 → MEDICAL 02-18 00:20
PROVIDERS: Emergency Medicine; Nurse Practitioner Family; Physician Assistant; ADMIT Emergency Medicine
DX: E11.628 Type 2 diabetes mellitus with other skin complications (principal); L03.116 Cellulitis of left lower limb; E87.2 Acidosis; E11.65 Type 2 diabetes mellitus with hyperglycemia; E11.40 Type 2 diabetes mellitus with diabetic neuropathy, unspecified; E78.5 Hyperlipidemia, unspecified; G43.909 Migraine, unspecified, not intractable, without status migrainosus; I25.10 Atherosclerotic heart disease of native coronary artery without angina pectoris; I48.0 Paroxysmal atrial fibrillation; I49.5 Sick sinus syndrome; Z95.0 Presence of cardiac pacemaker; Z79.4 Long term (current) use of insulin; Z91.14 Patient's other noncompliance with medication regimen
CPT/HCPCS: 99222-AI; 99232-AI; 99239; C1751; J0696; J0878; J1200; J1815; J3480; J7030

== ENCOUNTER → 2020-02-25 | Outpatient (CLI) | payer MEDICARE, BC ==
[~2020-02-25] MED LIST changes: +DOXYCYCLINE 10100 MG PO; +GLUCOTROL 5M5 MG/TAB PO; +LEXAPRO 10MG10 MG PO; +MIRALAX PA17 GM/Dose PO; +PRIL40 PO
== END ==
LOC: ZCOL.LAB 15:47
DX: L03.119 Cellulitis of unspecified part of limb (principal)

== ENCOUNTER → 2020-02-25 | Outpatient (CLI) | payer MEDICARE, BC | LOC: COL.LAB 12:21 | DX: L03.90 Cellulitis, unspecified (principal) ==

== ENCOUNTER 2020-04-30 14:39 | Inpatient (IN) | payer MEDICARE, BC ==
[~2020-04-30] VITALS: Ht 154.9 cm; Wt 90.4 kg
[2020-04-30] MEDS ORDERED: ACTOS 15MG TAB15 MG PO (16:39)
[2020-04-30 17:19] VITALS: BP 144/61; PULSE 70; TEMP 98.5
[2020-04-30 17:22] VITALS: BP 144/61; PULSE 70; TEMP 98.5
--- NOTE | 2020-04-30 17:28 | NUR ---
Pt arrived from [place] [facility] by ambulence. pt resting in bed, reports cough and shortness of breath, denies chest pain. Heart sounds regular and paced. lung sounds are clear. reports numbness and tingling in extremeties consistant with Diabetes. Left heel and foot is red and warm, osteomyelitis site noted. pt reports pain in legs when touched, no pain when ambulating. denies skin changes anywhere else. Pt made aware of visitor policy, no other needs at this time.
--- NOTE | 2020-04-30 18:13 | NUR ---
Pt BS rechecked since arrival to floor, 214 result. Pt seen an assessed by JONY Lr. Admission completed. No further needs expressed at this time.
--- NOTE | 2020-04-30 19:34 | NUR ---
Report received from BRAD Tirado. Pt resting in bed, denies needs at this time.
[2020-04-30 19:42] VITALS: BP 130/47; PULSE 72; TEMP 98.6
--- NOTE | 2020-04-30 21:28 | NUR ---
Assessment completed. Pt reports SOA with exertion but denies any difficulty breathing while resting in bed. Reddened area with hardened lump noted on left ankle/heel, currently covered by JENA wrap. INT to left AC intact and flushes easily. Pt reports mild pain when left ankle/heel is touched but denies pain otherwise. Lung sounds clear to auscultation, heart rate and rhythm regular, alert and oriented x4. Pt denies other needs at this time.
[2020-04-30 23:32] VITALS: BP 115/41; PULSE 55; TEMP 98.8
[2020-05-01 03:30] VITALS: BP 104/58; PULSE 54; TEMP 98.8
--- NOTE | 2020-05-01 06:02 | NUR ---
Pt has slept through most of night without complaint. IV antibiotics administered per orders. Pt has denied pain or other concerns. NPO since midnight for MRI today.
[2020-05-01 07:27] LABS: BASO % 0.2 % (0.0-2.0); EOS # 0.1 (0.0-0.7); EOS % 1.5 % (0-4.0); GRAN # 8.1 (1.4-6.5); GRAN % 85.7 % (42.2-75.2); LYMPH # 0.7 (1.2-3.4); LYMPH % 7.2 % (20.0-51.0); MEAN CELL VOLUME 85 fl (80.0-100.0); MEAN CORPUSCULAR HGB CONC 33 g/dl (33.0-37.0); MEAN PLATELET VOLUME 10.6 fl (7.4-10.4); MONO # 0.5 (0.1-0.6); MONO % 4.8 % (1.7-9.3); PLATELET COUNT 165 K/mm3 (130-400); RED BLOOD COUNT 3.37 M/mm3 (4.10-5.30); REDCELL DISTRIBUTION WIDTH-CV 14.8 % (11.5-14.5)
[2020-05-01 07:31] LABS: HEMATOCRIT 28.5 % (37.0-47.0); HEMOGLOBIN 9.4 g/dl (12.5-16.0); MEAN CORPUSCULAR HEMOGLOBIN 28 pg (27.0-31.0)
[2020-05-01 07:49] LABS: ALBUMIN 3.4 gm/dL (3.5-5.0); BILIRUBIN,TOTAL 1.2 mg/dL (0.0-1.0); CALCIUM 8.4 mg/dL (8.4-10.2); CREATININE, serum 0.94 (0.52-1.25); TOTAL PROTEIN 6.8 gm/dL (6.4-8.2)
[2020-05-01 08:01] VITALS: BP 134/53; PULSE 70; TEMP 98.8
[2020-05-01 12:48] VITALS: BP 134/59; PULSE 72; TEMP 97.6
--- NOTE | 2020-05-01 13:01 | NUR ---
PT AOX4. DENEIS ANY PAIN. DRESSING TO LEFT FOOT/ANKLE C/D/I WITH JENA WRAP ON TOP. NO DRAINAGE NOTED. PT WITH UNSTEADY BALANCE. STANDBY TO 1 ASSIST TO BSC. REPORTS NO BM SINCE TUESDAY BUT HER NORM IS 1-2 TIMES PER WEEK. DENIES NAUSEA, CP. MORNING HEADACHE RESOLVED. AWAITING LUNCH
[2020-05-01 16:00] VITALS: BP 149/62; PULSE 71; TEMP 98.2
--- NOTE | 2020-05-01 16:23 | NUR ---
SW met with the patient to discuss discharge plan. The patient lives in [place] with her , Taurus (ph#[phone]). She reports independence with ADLs and does not have any DME. The patient's PCP is Dr. Constantino Montano and she receives her medications at [facility]. She reports no difficulties obtaining her meds. The patient does not have advanced directives and she was not interested in completing them at this time. The patient plans to return home with her upon discharge. The patient is currently receiving IV antibiotics. SW to continue to follow.
--- NOTE | 2020-05-01 19:05 | NUR ---
Received report from Rach. Seen patient awake, lying in bed. With INT on left AC. SCD on bilateral lower extremities. She denies pain or headache. Left foot was covered with abran wrap. Call light within reach.
[2020-05-01 19:09] VITALS: BP 136/54; PULSE 70; TEMP 98.5
--- NOTE | 2020-05-01 20:50 | NUR ---
Patient complains of headache, pain score of 7/10. Phenergan and Benadryl given.
--- NOTE | 2020-05-01 22:20 | NUR ---
Patient's INT on left AC is leaking. Re-inserted on right wrist using G22.
[2020-05-01 23:15] VITALS: BP 129/53; PULSE 54; TEMP 98.5
[2020-05-02 03:17] VITALS: BP 120/45; PULSE 51; TEMP 99
--- NOTE | 2020-05-02 06:24 | NUR ---
Unable to flush patient's IV site as there's a blood clot. Ivania SALINAS, re-inserted a new one on the right forearm with G22.
--- NOTE | 2020-05-02 07:00 | NUR ---
Report received from BRAD Warner. pT in bed resting, denies needs, will continue to monitor.
[2020-05-02 07:10] LABS: BASO % 0.3 % (0.0-2.0); EOS # 0.2 (0.0-0.7); EOS % 2.5 % (0-4.0); GRAN # 5.2 (1.4-6.5); GRAN % 77.3 % (42.2-75.2); LYMPH # 0.9 (1.2-3.4); LYMPH % 12.9 % (20.0-51.0); MEAN CELL VOLUME 86 fl (80.0-100.0); MEAN CORPUSCULAR HGB CONC 32 g/dl (33.0-37.0); MEAN PLATELET VOLUME 10.6 fl (7.4-10.4); MONO # 0.5 (0.1-0.6); MONO % 6.7 % (1.7-9.3); PLATELET COUNT 184 K/mm3 (130-400); RED BLOOD COUNT 3.41 M/mm3 (4.10-5.30); REDCELL DISTRIBUTION WIDTH-CV 14.9 % (11.5-14.5)
[2020-05-02 07:14] LABS: HEMOGLOBIN 9.4 g/dl (12.5-16.0); MEAN CORPUSCULAR HEMOGLOBIN 28 pg (27.0-31.0)
[2020-05-02 07:15] LABS: HEMATOCRIT 29.2 % (37.0-47.0)
[2020-05-02 07:34] LABS: C-REACTIVE PROTEIN 8.9 mg/dL (0.0-0.9); CALCIUM 8.7 mg/dL (8.4-10.2); CREATININE, serum 0.94 (0.52-1.25); POTASSIUM 3.9 mmol/L (3.4-5.0)
[2020-05-02 08:00] VITALS: BP 133/39; PULSE 71; TEMP 98.9
[2020-05-02 08:05] LABS: ERYTHROCYTE SEDIMENTATION RATE > 140 mm/hr (0-30)
--- NOTE | 2020-05-02 10:10 | NUR ---
Assessment charted. Pt hypoglycemic this am again, notified Paulina BORGES. Pt resting in bed. C/o headache at 10, will provide PRN medication. LLE dressed by Dr. Saavedra this am. OT in room, assisting, denies needs will continue to monitor.
[2020-05-02 12:24] VITALS: BP 140/56; PULSE 75; TEMP 98
[2020-05-02 16:21] VITALS: BP 149/55; PULSE 70; TEMP 98
--- NOTE | 2020-05-02 18:22 | NUR ---
Pt doing well, continues to have headache but otherwise no complaints for the day. Called pharmacy to pre mix phenergan for 1999 per pt request. Will give bedside shift erport to nightshift nruse whowill resuem care.
[2020-05-02 19:32] VITALS: BP 124/42; PULSE 72; TEMP 98.5
--- NOTE | 2020-05-02 20:00 | NUR ---
Received report from BRAD Jackson. A/Ox4. SBA with use of walker. C/O headache, PRN phenergan and benadryl adminsitered as requested by pt. Denies any other pain or discomfort. Scheduled meds administerd. Left foot with dressing in place. Tele monitor in place, leads checked. Needs met at this time. Call light within reach.
[2020-05-02 23:56] VITALS: BP 138/40; PULSE 50; TEMP 97.9
[2020-05-03 03:54] VITALS: BP 131/38; PULSE 52; TEMP 97.6
--- NOTE | 2020-05-03 06:23 | NUR ---
PT slept through the night without complaints. MEds administered. Call light within reach.
[2020-05-03 06:54] LABS: BASO % 0.4 % (0.0-2.0); EOS # 0.1 (0.0-0.7); GRAN # 3.2 (1.4-6.5); GRAN % 69.7 % (42.2-75.2); LYMPH # 0.9 (1.2-3.4); LYMPH % 19.4 % (20.0-51.0); MEAN CELL VOLUME 87 fl (80.0-100.0); MEAN CORPUSCULAR HGB CONC 33 g/dl (33.0-37.0); MEAN PLATELET VOLUME 10.5 fl (7.4-10.4); MONO # 0.3 (0.1-0.6); MONO % 7.3 % (1.7-9.3); PLATELET COUNT 205 K/mm3 (130-400); RED BLOOD COUNT 3.12 M/mm3 (4.10-5.30); REDCELL DISTRIBUTION WIDTH-CV 14.8 % (11.5-14.5)
[2020-05-03 07:00] LABS: ALBUMIN 3.5 gm/dL (3.5-5.0); BILIRUBIN,TOTAL 0.9 mg/dL (0.0-1.0); CALCIUM 8.8 mg/dL (8.4-10.2); CREATININE, serum 0.82 (0.52-1.25); HEMOGLOBIN 8.8 g/dl (12.5-16.0); MAGNESIUM 2.4 mg/dL (1.6-2.3); MEAN CORPUSCULAR HEMOGLOBIN 28 pg (27.0-31.0); POTASSIUM 4.2 mmol/L (3.4-5.0)
--- NOTE | 2020-05-03 07:10 | NUR ---
Report given to BRAD Valdez and Anthony.BRAD.
--- NOTE | 2020-05-03 07:41 | NUR ---
REPORT FROM RN X RAY NURSE, PT SLEEPING IN BED AT THIS TIME.
[2020-05-03 08:35] VITALS: BP 157/49; PULSE 70; TEMP 98.1
--- NOTE | 2020-05-03 09:57 | NUR ---
Pt resting in bed with the lights off, reports headache that is constant. no complaints of pain otherwise. left foot is wrapped, some edema noted but resolves quickly. Heart sounds are normal S1 and S2 present, lung sounds are clear. pt denies shortness of breath and cough, no nausea or vomiting. no other needs at this time.
--- NOTE | 2020-05-03 11:06 | NUR ---
Dr. Lezama notified about wound culture results to left foot, requesting antibiotic rec, physician will look at chart. Hospitalist aware.
[2020-05-03 12:23] VITALS: BP 158/63; PULSE 71; TEMP 98.2
[2020-05-03] MEDS ORDERED: CEPHALEXIN500 M1 PO (13:26)
--- NOTE | 2020-05-03 15:05 | NUR ---
SW met with patient to talk about DC plan. Patient wanted to know if the hospital could give her a walker. Due to hospital not being able to provide a walker. SW provided resources to obtain a walker. Patient stated that she would take care of getting one on her own. SW asked if she could assist with setting up transportation for DC and patient stated that she was taking care of that. Nothing further at this time.
--- NOTE | 2020-05-03 17:00 | NUR ---
Pt dressing changed to lt foot prior to discharge. no further needs.
--- NOTE | 2020-05-03 18:02 | NUR ---
pt discharged. this nurse and Candida SALINAS, took pt down to in the car by wheelchair. all pt items were taken with her.
== END 2020-05-03 17:00 | disposition home or self-care (01) | DRG 872 ==
LOC: MEDICAL 14:39
PROVIDERS: Physician Assistant; ADMIT Internal Medicine
PROC: 0J9R3ZX Drainage of Left Foot Subcutaneous Tissue and Fascia, Percutaneous Approach, Diagnostic (ICD-10-PCS; principal; 2020-05-01)
DX: A41.9 Sepsis, unspecified organism (principal); L03.116 Cellulitis of left lower limb; I48.20 Chronic atrial fibrillation, unspecified; J81.1 Chronic pulmonary edema; R65.10 Systemic inflammatory response syndrome (SIRS) of non-infectious origin without acute organ dysfunction; K80.20 Calculus of gallbladder without cholecystitis without obstruction; I25.10 Atherosclerotic heart disease of native coronary artery without angina pectoris; E11.40 Type 2 diabetes mellitus with diabetic neuropathy, unspecified; E11.65 Type 2 diabetes mellitus with hyperglycemia; S90.822A Blister (nonthermal), left foot, initial encounter; R23.8 Other skin changes; K21.9 Gastro-esophageal reflux disease without esophagitis; I10 Essential (primary) hypertension; F32.9 Major depressive disorder, single episode, unspecified; E87.6 Hypokalemia; E83.42 Hypomagnesemia; D64.9 Anemia, unspecified; I49.5 Sick sinus syndrome; B95.1 Streptococcus, group B, as the cause of diseases classified elsewhere; E78.5 Hyperlipidemia, unspecified; X58.XXXA Exposure to other specified factors, initial encounter; Z79.82 Long term (current) use of aspirin; Z79.01 Long term (current) use of anticoagulants; Z95.0 Presence of cardiac pacemaker; Z95.5 Presence of coronary angioplasty implant and graft; Z96.652 Presence of left artificial knee joint; Z88.0 Allergy status to penicillin; Z88.1 Allergy status to other antibiotic agents; Z88.8 Allergy status to other drugs, medicaments and biological substances
CPT/HCPCS: 99222-AI; 99232-AI; 99239; A9585; J0696; J0878; J1200; J1815; J2550; J2765; J3475

== ENCOUNTER 2020-10-30 13:26 | Inpatient (IN) | payer MEDICARE, BC ==
[~2020-10-30] VITALS: Ht 157.5 cm; Wt 100.0 kg
[~2020-10-30 13:26] MED LIST changes: +ACTOS 15MG TAB15 MG PO; +CEPHALEXIN500 M1 PO
[2020-10-30 14:02] LABS: BASO % 0.4 % (0.0-2.0); EOS # 0.1 (0.0-0.7); EOS % 2.9 % (0-4.0); GRAN # 3.2 (1.4-6.5); GRAN % 67.4 % (42.2-75.2); HEMATOCRIT 32.7 % (37.0-47.0); HEMOGLOBIN 10.9 g/dl (12.5-16.0); LYMPH # 1.1 (1.2-3.4); MEAN CELL VOLUME 82 fl (80.0-100.0); MEAN CORPUSCULAR HEMOGLOBIN 27 pg (27.0-31.0); MEAN CORPUSCULAR HGB CONC 33 g/dl (33.0-37.0); MEAN PLATELET VOLUME 9.9 fl (7.4-10.4); MONO # 0.3 (0.1-0.6); MONO % 6.9 % (1.7-9.3); PLATELET COUNT 202 K/mm3 (130-400); REDCELL DISTRIBUTION WIDTH-CV 16.8 % (11.5-14.5)
[2020-10-30 14:10] LABS: ALANINE AMINOTRANSFERASE 29 U/L (4-34); ALBUMIN 4.2 gm/dL (3.5-5.0); ALKALINE PHOSPHATASE 111 U/L (50-136); ANION GAP 7 mmol/L (7-16); AST,SGOT 54 U/L (15-37); BILIRUBIN,TOTAL 1.2 mg/dL (0.0-1.0); BLOOD UREA NITROGEN 17 mg/dL (7-17); CALCIUM 9.6 mg/dL (8.4-10.2); CARBON DIOXIDE 29 mmol/L (22-30); CHLORIDE 103 mmol/L (98-107); CREATININE, serum 0.74 (0.52-1.25); GLUCOSE 163 mg/dL (74-106); POTASSIUM 3.7 mmol/L (3.4-5.0); SODIUM 139 mmol/L (137-145); TOTAL PROTEIN 7.6 gm/dL (6.4-8.2)
[2020-10-30 14:19] LABS: TROPONIN-I < 0.012 ng/mL (0.000-0.035)
[2020-10-30 14:20] LABS: C-REACTIVE PROTEIN < 0.5 mg/dL (0.0-0.9)
[2020-10-30] MEDS ORDERED: LASIX 20MG TABL20 MG PO (18:08)
[2020-10-30] MEDS ORDERED: PROAIR HFA0.09 MG/AC IH (18:09)
[2020-10-30] MEDS ORDERED: PRINIVIL5 MG PO (18:12)
[2020-10-30] MEDS ORDERED: CULTURELLE1 EAC1 PO (18:12)
--- NOTE | 2020-10-30 19:26 | NUR ---
Pt up to room 358. Pt A&O, independent in room, on room air, breathing is even and unlabored, LS cta. HRRR, paced on tele. Pulses strong bilaterally. BLE edema 2+, pulses palpable. Pt denies dizziness, N/V/D, abd pain, chest pain. C/O BUSTAMANTE, no SOB at this time. BS active. LAC INT IV flushes w/o issue. Meds/allergies/pharmacy reviewed w/ patient. No further needs at this time. pt pacer interrogated and uploaded. JONY Lr notified of med list beng updated. No further needs or orders palced at this time. Dinner ordered and delivered. Report given to BRAD Vergara.
[2020-10-30 20:21] VITALS: BP 138/56; PULSE 78; TEMP 97.8
--- NOTE | 2020-10-30 23:00 | NUR ---
Resting quietly, no c/o at this time, accurate I&O , patient teaching re: I&O, blood sugars wnl at this time, call light w/i reach.
[2020-10-31] VITALS (12 sets, daily range): BP systolic 110–164; BP diastolic 45–79; PULSE 51–72; TEMP 97.3–98.2
[2020-10-31 07:14] LABS: BASO % 0.5 % (0.0-2.0); EOS # 0.1 (0.0-0.7); EOS % 3.6 % (0-4.0); GRAN # 2.5 (1.4-6.5); GRAN % 63.2 % (42.2-75.2); LYMPH % 24.5 % (20.0-51.0); MEAN CELL VOLUME 86 fl (80.0-100.0); MEAN CORPUSCULAR HGB CONC 32 g/dl (33.0-37.0); MEAN PLATELET VOLUME 10.3 fl (7.4-10.4); MONO # 0.3 (0.1-0.6); MONO % 7.7 % (1.7-9.3); PLATELET COUNT 182 K/mm3 (130-400); REDCELL DISTRIBUTION WIDTH-CV 17.1 % (11.5-14.5)
[2020-10-31 07:17] LABS: HEMATOCRIT 29.1 % (37.0-47.0); HEMOGLOBIN 9.3 g/dl (12.5-16.0); MEAN CORPUSCULAR HEMOGLOBIN 27 pg (27.0-31.0)
[2020-10-31 07:22] LABS: ALBUMIN 3.5 gm/dL (3.5-5.0); BILIRUBIN,TOTAL 1.2 mg/dL (0.0-1.0); CALCIUM 8.9 mg/dL (8.4-10.2); CREATININE, serum 0.9 (0.52-1.25); POTASSIUM 3.6 mmol/L (3.4-5.0); TOTAL PROTEIN 6.5 gm/dL (6.4-8.2)
--- NOTE | 2020-10-31 09:52 | NUR ---
Pt assessment completed and charted. Pt A&O, independent in room, on room air, breathing is even and unlabored. LS cta, HRRR. LAC IV flushes w/o issue. Pt denies dizziness, N/V/D, SOB at this time. Pt denies any pain. Pulses strong bilaterally, BS active. Pt NPO for lexiscan this morning. BLE 1-2+, improved from yesterday. Pt has a callus to rt medial foot w/ fluid filled blister. Pt states it has been an "ongoing issue recently". No further needs expressed at this time. Provided w/ kleenex, toothbrush and toothpaste.
--- NOTE | 2020-10-31 13:45 | NUR ---
PT DOWN FOR LEXISCAN AT THIS TIME.
--- NOTE | 2020-10-31 15:12 | NUR ---
Regular Senior Care Provider met with patient to discuss discharge planning. Patient lives in [place] with her , Cameron (ph#[phone]) and sees Dr. Montano for primary care. Patient [facility] with no difficulties and does not use any DME at home. Patient is independent with ADLS and plans to return home upon discharge. Patient does not have Advance Directives and is not interested in designating DPOA-HC at this time. SW will continue to follow as needed.
--- NOTE | 2020-10-31 15:23 | NUR ---
Pt back from [facility], no results at this time. Pt c/o headache, no medications on nov. I called JONY Gallardo to notify of pt complaint. Will put in tylenol order and change diet for pt to eat as well.
--- NOTE | 2020-10-31 19:31 | NUR ---
Call placed to Rona Gudino re: am medications given at 1630- Lopressor, Eliquis- and being due at . NON: Hold Lopressor and Eliquis this evening and will come see with results of Cardiac stress test.
--- NOTE | 2020-10-31 23:11 | NUR ---
Awake, alert, oriented x 4, sitting up in bed, bedtime snack given, resting quietly, call roman w/i reach. UPdated on plan of care.
[2020-11-01 01:09] VITALS: BP 126/53; PULSE 54; TEMP 97.9
[2020-11-01 04:02] VITALS: BP 123/63; PULSE 53; TEMP 97.8
[2020-11-01 07:52] VITALS: BP 145/63; PULSE 71; TEMP 97.8
[2020-11-01 07:59] LABS: MEAN CELL VOLUME 85 fl (80.0-100.0); MEAN CORPUSCULAR HGB CONC 32 g/dl (33.0-37.0); MEAN PLATELET VOLUME 10.4 fl (7.4-10.4); PLATELET COUNT 182 K/mm3 (130-400); RED BLOOD COUNT 3.55 M/mm3 (4.10-5.30); REDCELL DISTRIBUTION WIDTH-CV 17.1 % (11.5-14.5)
[2020-11-01 08:03] LABS: HEMOGLOBIN 9.6 g/dl (12.5-16.0); MEAN CORPUSCULAR HEMOGLOBIN 27 pg (27.0-31.0)
[2020-11-01 08:04] LABS: HEMATOCRIT 30.2 % (37.0-47.0)
[2020-11-01 08:10] LABS: CALCIUM 8.9 mg/dL (8.4-10.2); CREATININE, serum 0.94 (0.52-1.25); POTASSIUM 3.4 mmol/L (3.4-5.0)
--- NOTE | 2020-11-01 08:23 | NUR ---
Pt assessment complete. Pt is sitting up in bed upon entry, she is A/o x4. Her breathing is even and unlabored on RA. Pt denies SOB at rest and on exertion. She denies any chest pain or palpitations. Denies dizziness. No further needs at this time. Call light within reach.
[2020-11-01 11:50] VITALS: BP 150/54; PULSE 70; TEMP 98
--- NOTE | 2020-11-01 13:18 | NUR ---
First visit from the vascular technologist sonographer. No needs right now.
[2020-11-01 17:02] VITALS: BP 164/56; PULSE 69; TEMP 98.2
--- NOTE | 2020-11-01 18:26 | NUR ---
Pt resting in bed. Denies SOB or pain. Plan to stay for heart cath on Tuesday. No needs at this time.
[2020-11-01 19:20] VITALS: BP 127/43; PULSE 71; TEMP 98.4
--- NOTE | 2020-11-01 19:34 | NUR ---
Awake, alert, oriented x 4, able to make all needs known, resting quietly in bed, no s/s of hypo/hyper glycemia.
[2020-11-02] VITALS (8 sets, daily range): BP systolic 119–143; BP diastolic 45–55; PULSE 50–71; TEMP 97.1–98
[2020-11-02 06:38] LABS: BASO % 0.4 % (0.0-2.0); EOS # 0.1 (0.0-0.7); EOS % 3.1 % (0-4.0); GRAN % 65.5 % (42.2-75.2); LYMPH % 22.4 % (20.0-51.0); MEAN CELL VOLUME 85 fl (80.0-100.0); MEAN CORPUSCULAR HGB CONC 32 g/dl (33.0-37.0); MEAN PLATELET VOLUME 10.4 fl (7.4-10.4); MONO # 0.4 (0.1-0.6); MONO % 8.4 % (1.7-9.3); PLATELET COUNT 187 K/mm3 (130-400); RED BLOOD COUNT 3.51 M/mm3 (4.10-5.30); REDCELL DISTRIBUTION WIDTH-CV 17.1 % (11.5-14.5)
[2020-11-02 06:44] LABS: CALCIUM 8.8 mg/dL (8.4-10.2); CREATININE, serum 0.96 (0.52-1.25); POTASSIUM 3.3 mmol/L (3.4-5.0)
[2020-11-02 07:09] LABS: HEMATOCRIT 29.9 % (37.0-47.0); HEMOGLOBIN 9.6 g/dl (12.5-16.0); MEAN CORPUSCULAR HEMOGLOBIN 27 pg (27.0-31.0)
--- NOTE | 2020-11-02 08:48 | NUR ---
Pt assessment complete. Pt is sitting up in bed upon entry, she is A/O x4. Her breathing is even and unlabored on RA. Pt denies SOB. No chest pain/palpitations. Reports a headache this AM. Eating breakfast at this time. Call light within reach.
--- NOTE | 2020-11-02 12:02 | NUR ---
SW spoke with patient's RN. Patient will get a heart cath 11/03 with possible discharge 11/03 (clean cath) or 11/04 (with intervention). Patient has a cardiac procedure in [place] scheduled for 11/04 that patient will need to reschedule if heart cath requires intervention. Social work will continue to follow.
[2020-11-02 13:18] LABS: HEMATOCRIT 33.5 % (37.0-47.0); HEMOGLOBIN 10.7 g/dl (12.5-16.0); MEAN CELL VOLUME 86 fl (80.0-100.0); MEAN CORPUSCULAR HEMOGLOBIN 28 pg (27.0-31.0); MEAN CORPUSCULAR HGB CONC 32 g/dl (33.0-37.0); MEAN PLATELET VOLUME 10.2 fl (7.4-10.4); PLATELET COUNT 190 K/mm3 (130-400); RED BLOOD COUNT 3.89 M/mm3 (4.10-5.30); REDCELL DISTRIBUTION WIDTH-CV 16.9 % (11.5-14.5)
[2020-11-02 13:25] LABS: CALCIUM 9.1 mg/dL (8.4-10.2); CREATININE, serum 0.93 (0.52-1.25)
[2020-11-02 13:27] LABS: INR 1.2 (0.8-3.0); PROTHROMBIN TIME 13.7 SECONDS (9.7-12.8)
[2020-11-02 13:29] LABS: PARTIAL THROMBOPLASTIN TIME 42.7 SECONDS (26.0-37.0)
--- NOTE | 2020-11-02 18:32 | NUR ---
Pt had uneventful day, remains on RA. No pain reported. Plan for heart catheterization tomorrow. Call light within reach.
--- NOTE | 2020-11-02 19:43 | NUR ---
Awake, alert, oriented x 4, able to make all needs known, bedtime snack given, no s/s of hypo/hyper glycemia, telemetry in use, VS stable.
--- NOTE | 2020-11-02 23:08 | NUR ---
Resting quietly at this time, respirations even and unlabored, bedtime snack eaten, no further wants at this time. Call roman w/i reach, frequently checked on, Telemetry in use.
[2020-11-03] VITALS (441 sets, daily range): BP systolic 113–175; BP diastolic 52–778; PULSE 51–73; TEMP 97.5–97.7; O2SAT 90–100
[2020-11-03 06:50] LABS: BASO % 0.4 % (0.0-2.0); EOS # 0.2 (0.0-0.7); EOS % 3.6 % (0-4.0); GRAN # 2.8 (1.4-6.5); GRAN % 62.4 % (42.2-75.2); HEMOGLOBIN 10.4 g/dl (12.5-16.0); LYMPH # 1.1 (1.2-3.4); LYMPH % 24.9 % (20.0-51.0); MEAN CELL VOLUME 86 fl (80.0-100.0); MEAN CORPUSCULAR HEMOGLOBIN 28 pg (27.0-31.0); MEAN CORPUSCULAR HGB CONC 32 g/dl (33.0-37.0); MONO # 0.4 (0.1-0.6); PLATELET COUNT 197 K/mm3 (130-400); RED BLOOD COUNT 3.77 M/mm3 (4.10-5.30); REDCELL DISTRIBUTION WIDTH-CV 17.1 % (11.5-14.5)
[2020-11-03 06:58] LABS: CREATININE, serum 1.07 (0.52-1.25); MAGNESIUM 1.7 mg/dL (1.6-2.3); POTASSIUM 4.2 mmol/L (3.4-5.0)
[2020-11-03 07:38] LABS: HEMATOCRIT 32.3 % (37.0-47.0)
--- NOTE | 2020-11-03 08:36 | NUR ---
Pt awake and alert upon entry this morning, no C/O pain currently. Medications except ASA held in consult with Landscape Artist nurse, ASA given with sip of water. Shift assessment complete, left Pt call light in reach, bed in lowest position. porcelain enamel laborer nurse in room preping Pt for procedure.
--- NOTE | 2020-11-03 09:09 | NUR ---
SEE MERGE DOCUMENTATION FOR MEDICATION ADMINISTRATION TIMES AND INTRA/POST PROCEDURE SEDATION ASSESSMENTS. RIGHT HAND BARBEAU TEST POSITIVE.
--- NOTE | 2020-11-03 10:00 | NUR ---
Recieved report from BRAD Samuels on medical floor.
--- NOTE | 2020-11-03 10:17 | NUR ---
Just recieved report from [place] wastewater analyst lab analyst RN. Patient stable and heading over soon.
--- NOTE | 2020-11-03 10:30 | NUR ---
Patient arrived from cardiac cath rn. laborer tree tapping RN at bedside with patient.Patient stable on RA, IVF and nitro gtt running. Right radial site has TR band, site checked, pules and cap refill in tact no hematoma. will continue to monitor.
--- NOTE | 2020-11-03 13:50 | NUR ---
SPOKE TO JONY WOODY REGARDING PATIENTS BLOOD PRESSURE GETTING TO 160'S. BONG SAID OK TO GIVE LISINOPRIL AND METOPROLOL SINCE IT WAS NOT GIVEN EARLIER THIS MORNING DUE TO CATH PROCEDURE.
--- NOTE | 2020-11-03 16:30 | NUR ---
last 2 ml of air taken out of TR band. TR band removed, site cleaned and bandaid placed. no active bleeding, site soft no hematoma.
--- NOTE | 2020-11-03 21:18 | NUR ---
Report recieved from Lainey SALINAS. Patient is in bed resting. Vitals are stable. She complains of no pain. Radial site is clean, dry and intact. She has no complaints. She voided twice. 2100 meds were given along with some gramcrackers. She is resting.
[2020-11-04] VITALS (336 sets, daily range): BP systolic 107–124; BP diastolic 53–82; PULSE 65–69; TEMP 98–98.6; O2SAT 90–100
[2020-11-04 04:20] LABS: BASO % 0.4 % (0.0-2.0); EOS # 0.2 (0.0-0.7); EOS % 3.2 % (0-4.0); GRAN # 3.7 (1.4-6.5); GRAN % 70.3 % (42.2-75.2); HEMOGLOBIN 10.1 g/dl (12.5-16.0); LYMPH # 0.9 (1.2-3.4); LYMPH % 17.2 % (20.0-51.0); MEAN CELL VOLUME 83 fl (80.0-100.0); MEAN CORPUSCULAR HEMOGLOBIN 28 pg (27.0-31.0); MEAN CORPUSCULAR HGB CONC 33 g/dl (33.0-37.0); MEAN PLATELET VOLUME 10.1 fl (7.4-10.4); MONO # 0.5 (0.1-0.6); MONO % 8.5 % (1.7-9.3); PLATELET COUNT 203 K/mm3 (130-400); RED BLOOD COUNT 3.67 M/mm3 (4.10-5.30); REDCELL DISTRIBUTION WIDTH-CV 16.9 % (11.5-14.5)
[2020-11-04 04:21] LABS: HEMATOCRIT 30.6 % (37.0-47.0)
[2020-11-04 04:32] LABS: CHOLESTEROL RISK RATIO 3.1; CREATININE, serum 1.03 (0.52-1.25); POTASSIUM 4.1 mmol/L (3.4-5.0)
--- NOTE | 2020-11-04 05:54 | NUR ---
The patient had an uneventful night. She only complained of a little pain on her wrist where the TR band was placed. But the site looks normal. The bandaide was clean, dry and intact. Around 2am she complained of a headache and said she couldn't sleep. I gave her a tylenol and she was able to fall asleep. The patient had two voids during the night. Her vitals are stable.
[2020-11-04] MEDS ORDERED: PLAVIX 75MG TAB75 MG PO (10:43)
--- NOTE | 2020-11-04 11:38 | NUR ---
PT dressed, IV site DC'd, pt steady gaitn and no complaints at this time. Pt moved from room in wheelchair and assisted into passenger seat of husbands van. PT verbalizes understanding of education and will call with any questions that may arise.
== END 2020-11-04 11:38 | disposition home or self-care (01) | DRG 246 ==
LOC: COL.ER 13:26 → MEDICAL 16:09 → ICU 11-03 10:30 → MEDICAL 11-03 10:30 → ICU 11-03 10:30
PROVIDERS: Family Medicine; Hospitalist; Internal Medicine Cardiovascular Disease; Nurse Practitioner; Physician Assistant; ADMIT Student in an Organized Health Care Education/Training Program
PROC: 027034Z Dilation of Coronary Artery, One Artery with Drug-eluting Intraluminal Device, Percutaneous Approach (ICD-10-PCS; principal; 2020-11-03)
PROC: 4A023N7 Measurement of Cardiac Sampling and Pressure, Left Heart, Percutaneous Approach (ICD-10-PCS; 2020-11-03)
PROC: B2111ZZ Fluoroscopy of Multiple Coronary Arteries using Low Osmolar Contrast (ICD-10-PCS; 2020-11-03)
DX: I25.110 Atherosclerotic heart disease of native coronary artery with unstable angina pectoris (principal); I50.33 Acute on chronic diastolic (congestive) heart failure; I11.0 Hypertensive heart disease with heart failure; E78.5 Hyperlipidemia, unspecified; I48.0 Paroxysmal atrial fibrillation; I49.5 Sick sinus syndrome; E11.9 Type 2 diabetes mellitus without complications; F32.9 Major depressive disorder, single episode, unspecified; Z95.0 Presence of cardiac pacemaker; D64.9 Anemia, unspecified; K21.9 Gastro-esophageal reflux disease without esophagitis; I25.82 Chronic total occlusion of coronary artery; I27.20 Pulmonary hypertension, unspecified; E83.42 Hypomagnesemia; E87.6 Hypokalemia; Z95.5 Presence of coronary angioplasty implant and graft; Z79.82 Long term (current) use of aspirin; Z79.01 Long term (current) use of anticoagulants; Z79.84 Long term (current) use of oral hypoglycemic drugs; Z88.1 Allergy status to other antibiotic agents; Z88.0 Allergy status to penicillin
CPT/HCPCS: OP; 99223-AI; 99231-AI; 99232-AI; 99239; A9500; C1725; C1769; C1874; C1887; C9600; G0378; J0583; J1644; J1815; J1940; J2250; J2785; J3010; J3475; Q9967

== ENCOUNTER → 2020-11-18 | Outpatient (CLI) | payer MEDICARE, BC ==
[~2020-11-18] MED LIST changes: +CULTURELLE1 EAC1 PO; +PLAVIX 75MG TAB75 MG PO; +PRINIVIL5 MG PO; +PROAIR HFA0.09 MG/AC IH
== END ==
LOC: ZCOL.LAB 17:37
DX: L97.519 Non-pressure chronic ulcer of other part of right foot with unspecified severity (principal)

== ENCOUNTER 2021-03-09 17:23 | Emergency (ER) | payer MEDICARE, BC ==
[~2021-03-09] VITALS: Ht 157.5 cm; Wt 91.8 kg
[2021-03-09 17:25] VITALS: TEMP 98.2
[2021-03-09 21:10] VITALS: BP 130/68; PULSE 80
== END 2021-03-09 21:19 | disposition home or self-care (01) ==
LOC: COL.ER 17:23
DX: S80.02XA Contusion of left knee, initial encounter (principal); S20.212A Contusion of left front wall of thorax, initial encounter; I10 Essential (primary) hypertension; E78.5 Hyperlipidemia, unspecified; I25.10 Atherosclerotic heart disease of native coronary artery without angina pectoris; I48.0 Paroxysmal atrial fibrillation; E11.9 Type 2 diabetes mellitus without complications; F32.9 Major depressive disorder, single episode, unspecified; Z79.01 Long term (current) use of anticoagulants; Z79.02 Long term (current) use of antithrombotics/antiplatelets; Z79.899 Other long term (current) drug therapy; W18.09XA Striking against other object with subsequent fall, initial encounter; Y92.59 Other trade areas as the place of occurrence of the external cause
CPT/HCPCS: J1885

== ENCOUNTER 2024-06-12 05:57 | Day surgery (SDC) | payer MEDICARE, BC ==
[~2024-06-12] VITALS: Ht 162.6 cm; Wt 82.6 kg
[2024-06-12] VITALS (8 sets, daily range): BP systolic 131–153; BP diastolic 54–72; PULSE 62–76; TEMP 96.9–97
[~2024-06-12 05:57] MED LIST changes: +ALDACTONE 25MG25 M1 PO; +COZAAR 25MG25 MG/TAB PO; +EFFIENT10 MG PO; +FARXIGA10 PO; +JARDIANCE10 PO; +LASIX 40MG TABL40 MG PO; +LEXAPRO20 MG PO; +METOPROLOL TART75 MG PO; +MULTIPLE VITAMI1 CAP PO; +NEURONTIN100 MG/CAP PO; +NITROSTAT0.4 MG/TAB SL; +ROXICODONE 55 MG/TAB PO; +STIOLTO RESPIMAT4 GM IH; +TOPROL XL 50MG50 MG PO; +TYLENOL 500MG500 MG PO; +UROCIT-K 1010 MEQ PO; +ZAROXOLYN 2.52.5 MG PO
[2024-06-12] MEDS ORDERED: LR 1,000 ML IV SCH ×2 (07:00→10:45)
[2024-06-12] MEDS ORDERED: Famotidine 20 MG TAB PO SCH (07:00)
[2024-06-12 07:43] LABS: CALCIUM 9.5 mg/dL (8.4-10.2); CREATININE, serum 1.1 mg/dL (0.57-1.11); POTASSIUM 3.9 mEq/L (3.5-4.5)
[2024-06-12] MEDS ORDERED: Succinylcholine PF 200 MG/10 ML SYRINGE IV ONE (07:50)
[2024-06-12] MEDS ORDERED: Lidocaine PF 2% (20 MG/ML) 5 ML VIAL ONE (07:50)
[2024-06-12] MEDS ORDERED: fentaNYL 50 MCG/ML 2 ML VIAL ONE (07:50)
[2024-06-12] MEDS ORDERED: dexAMETHasone 10 MG/ML VIAL ONE (07:50)
[2024-06-12] MEDS ORDERED: Rocuronium 50 MG/5 ML Multi-Dose VIAL ONE (07:50)
[2024-06-12] MEDS ORDERED: Ondansetron 4 MG/2 ML VIAL ONE (07:50)
[2024-06-12] MEDS ORDERED: NEURONTIN300 MG/CAP PO (07:57)
[2024-06-12] MEDS ORDERED: OZEMPIC0.25 MG/02 SQ (08:02)
[2024-06-12] MEDS ORDERED: Ondansetron 4 MG/2 ML VIAL IV PRN ×2 (09:30→10:30)
[2024-06-12] MEDS ORDERED: HYDROmorphone 1 MG/1 ML SYRINGE [PACU/SDC ONLY] IV PRN (09:30)
[2024-06-12] MEDS ORDERED: hydrALAZINE 20 MG/ML 1 ML VIAL IV PRN (09:30)
[2024-06-12] MEDS ORDERED: droPERidol 2.5 MG/ML 2 ML VIAL IV PRN (09:30)
[2024-06-12] MEDS ORDERED: fentaNYL 50 MCG/ML 1 ML SYRINGE/VIAL [PACU/SDC ONLY] IV PRN (09:30)
[2024-06-12] MEDS ORDERED: NORCO 325 MG-51 TAB PO (10:33)
[2024-06-12] MEDS ORDERED: Morphine 4 MG/ML VIAL IV PRN (10:45)
--- NOTE | 2024-06-12 11:15 | NUR ---
PATIENT RETURNED TO BAY 7, ORIENTED X3. PATIENT IS STATING "TENSE", AND NODDING HER HEAD UP AND DOWN WHEN ASKED IF SHE FEELS TENSE. DENIES PAIN, NAUSEA AND SHORTNESS OF BREATH. BREATHING REGULAR AND UNLABORED ON 2L VIA NASAL CANNULA. WARM BLANKET APPLIED. PATIENT NODS WHEN ASKED IF THE WARM BLANKET HELPED. DENIES INTERVENTIONS. REPEATS "TENSE". NURSE HANDOFF COMPLETED IN ROOM WITH INSPECTION OF SURGICAL SITES. 3 BANDAIDS PRESENT TO ABDOMEN. ALL BANDAIDS CLEAN, DRY AND INTACT. SURROUNDING SKIN INTACT. ABDOMEN ROUNDED. SKIN WARM ADN DRY. PATIENT REQUESTED TO REST IN CART. CALL LIGHT IN REACH. SON, BRAYAN, PRESENT IN ROOM.
--- NOTE | 2024-06-12 11:50 | NUR ---
PATIENT HAD WATER AND APPLESAUCE. BOTH FOOD AND DRINK TOLERATED WELL. NO DYSPHAGIA. PATIENT IS ALERT, RESTING IN CART. CALL LIGHT IN REACH
--- NOTE | 2024-06-12 13:02 | NUR ---
1223: DISCHARGE TEACHING COMPLETED WITH PRINTED EDUCATION AND INSTRUCTIONS SENT HOME WITH PATIENT. FOLLOW UP APPOINTMENT DATE, TIME AND LOCATION COMMUNICATED TO PATIENT AND BRAYAN. BOTH PATIENT AND BRAYAN VERBALIZE UNDERSTANDING OF INSTRUCTIONS. 1248: PATIENT AMBULATED TO RESTROOM WITH ASSISTANCE AND VOIDED WITHOUT DIFFICULTY. 1250: PATIENT DENIES PAIN AND NAUSEA. ALL 3 ABDOMINAL BANDAIDS CLEAN, DRY AND INTACT. IV REMOVED. GAUZE AND COBAN PLACED OVER SITE. 1302: PATIENT CHANGED INTO PERSONAL CLOTHING AND DISCHARGED HOME WITH BRAYAN TRANSPORT.
== END 2024-06-12 13:02 | disposition home or self-care (01) ==
LOC: SDCO 05:57
PROVIDERS: Nurse Anesthetist, Certified Registered
DX: K80.10 Calculus of gallbladder with chronic cholecystitis without obstruction (principal); I11.0 Hypertensive heart disease with heart failure; I50.9 Heart failure, unspecified; Z95.5 Presence of coronary angioplasty implant and graft; Z95.0 Presence of cardiac pacemaker; Z79.82 Long term (current) use of aspirin; Z79.02 Long term (current) use of antithrombotics/antiplatelets
CPT/HCPCS: J0690; J1100; J1790; J2405; J2704; J3010; J7120

== ENCOUNTER → 2024-07-16 | Outpatient (CLI) | payer MEDICARE ==
[~2024-07-16] MED LIST changes: +Albuterol 0.083% Neb Soln 2.5 MG/3 ML UD IH ONE; +Methacholine Vial A (Clear Label Base-Cntrl) IH ONE; +Methacholine Vial B (Red Label) 0.0625 MG/ML 3 ML VIAL.NEB IH ONE; +Methacholine Vial C (Orange Label) 0.25 MG/ML 3 ML VIAL.NEB IH ONE; +Methacholine Vial D (Yellow Label) 1 MG/ML 3 ML VIAL.NEB IH ONE; +NEURONTIN300 MG/CAP PO; +OZEMPIC0.25 MG/02 SQ
== END ==
LOC: COL.CARD 08:50
DX: R06.02 Shortness of breath (principal)
CPT/HCPCS: J7674